=== PATIENT | male | born 1980 | race Caucasian/White ===

== ENCOUNTER 2023-11-15 19:48 | Emergency (ER) | payer OTHER ==
[~2023-11-15] VITALS: Ht 172.7 cm; Wt 93.0 kg
[2023-11-15 19:50] VITALS: BP 157/79; PULSE 87; RESP 14; TEMP 97.6; O2SAT 99
--- NOTE | 2023-11-15 19:50 | NUR ---
PT AMBULATED TO ER BED 11
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
--- NOTE | 2023-11-15 20:06 | NUR ---
SOLE DYER AT BEDSIDE
[2023-11-15] MEDS: IBUPROFEN 600 MG TAB PO ONE (20:18)
[2023-11-15] MEDS: LIDOCAINE MPF 1% 10 MG/ML VIAL INJ ONE (20:21)
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
[2023-11-15] MEDS ORDERED: BACITRACIN OINT 500 UNITS/GM PKT TP ONE (20:45)
[2023-11-15] MEDS: BACITRACIN OINT 500 UNITS/GM PKT TP ONE (20:46)
[2023-11-15] MEDS ORDERED: CEPH500C16 PO (20:48)
--- NOTE | 2023-11-15 21:02 | NUR ---
Written and verbal after care instructions given and explained. Patient alert, oriented and verbalized understanding of instructions. Ambulatory with steady gait. All questions addressed prior to discharge. ID band removed. Patient advised to follow up with PMD. Rx given. Patient educated on indication of medication including possible reaction and side effects. Opportunity to ask questions provided and answered.
== END 2023-11-15 21:02 | disposition home or self-care (01) ==
LOC: MED 19:48
DX: S61.432A Puncture wound without foreign body of left hand, initial encounter (principal); Z79.899 Other long term (current) drug therapy; W26.8XXA Contact with other sharp object(s), not elsewhere classified, initial encounter; Y92.89 Other specified places as the place of occurrence of the external cause; Y93.89 Activity, other specified; Y99.8 Other external cause status
CPT/HCPCS: 12001; 90471; 90715; 99283; J2001

== ENCOUNTER 2023-11-22 09:25 | Emergency (ER) | payer OTHER ==
[~2023-11-22] VITALS: Ht 172.7 cm; Wt 106.6 kg
[~2023-11-22 09:25] MED LIST: CEPH500C16 PO
[2023-11-22 09:37] VITALS: BP 142/84; PULSE 82; RESP 15; TEMP 98.5; O2SAT 96
[2023-11-22 10:04] VITALS: BP 142/84; PULSE 82; RESP 15; TEMP 98.5; O2SAT 96
== END 2023-11-22 10:04 | disposition home or self-care (01) ==
LOC: MED 09:25
DX: S61.412D Laceration without foreign body of left hand, subsequent encounter (principal); Z48.02 Encounter for removal of sutures; Z79.899 Other long term (current) drug therapy; X58.XXXD Exposure to other specified factors, subsequent encounter
CPT/HCPCS: 99281